=== PATIENT | female | born 1970 | race Caucasian/White ===

== ENCOUNTER 2019-05-11 16:02 | Emergency (ER) | payer OTHER ==
[2019-05-11] MEDS ORDERED: HYDROmorphone 0.5 MG/0.5 ML SYRINGE IM STA (16:35)
--- NOTE | 2019-05-11 17:16 | XR ---
EXAMINATION TYPE: XR clavicle LT DATE OF EXAM: 05/11/2019 COMPARISON: None HISTORY: Pain fall TECHNIQUE: 2 view left clavicle FINDINGS: Sternal clavicular junction appears unremarkable. Acromioclavicular junction appears within normal limits. No acute fractures or dislocations are evident. IMPRESSION: 1. Normal left clavicle
--- NOTE | 2019-05-11 17:17 | XR ---
EXAMINATION TYPE: XR shoulder complete LT DATE OF EXAM: 05/11/2019 COMPARISON: NONE HISTORY: Pain TECHNIQUE: Left Shoulder examined in 3 views FINDINGS: The humeral head articulates with the glenoid. The acromio-clavicular junction is normal. No acute fractures or dislocations are evident. A follow up study can be performed 7-10 days from acute trauma for continued pain. IMPRESSION: 1. Normal left Shoulder
--- NOTE | 2019-05-11 17:17 | XR ---
EXAMINATION TYPE: XR chest 2V DATE OF EXAM: 05/11/2019 COMPARISON: 11/14/2015 INDICATION: Pain, fall TECHNIQUE: Frontal and lateral views of the chest are obtained. FINDINGS: The heart size is normal. The pulmonary vasculature is normal. The lungs are clear. IMPRESSION: 1. No acute pulmonary process.
[2019-05-11] MEDS ORDERED: ACET/COD 300 MG/30 MG STARTER PACK 6 TAB BTL PO STA (17:51)
--- NOTE | 2019-05-11 17:52 | ED ---
General Adult HPI - General Source: patient, RN notes reviewed Mode of arrival: ambulatory Limitations: no limitations <Gr[employer] Zelaya - Last Filed: 05/11/19 17:47> <Ira Flower - Last Filed: 05/13/19 00:47> - General Chief complaint: Extremity Injury, Upper Stated complaint: Fall,Shoulder Injury Time Seen by Provider: 05/11/19 16:25 - History of Present Illness Initial comments: 49-year-old female without any significant past medical history presents to the emergency department for left shoulder pain. Patient states that she was stepping on a 6 inch high break when she fell and hit her left shoulder. Denies any neck back pain. Denies hitting her head. States she is having pain in the left shoulder and has difficulty moving the left shoulder secondary to pain. No other injuries.Patient has no other complaints at this time including shortness of breath, chest pain, abdominal pain, nausea or vomiting, headache, or visual changes. ([employer] Zelaya) - Related Data Home Medications Medication Instructions Recorded Confirmed Meloxicam [Mobic] 7.5 mg PO BID 11/14/15 11/14/15 Allergies Allergy/AdvReac Type Severity Reaction Status Date / Time amoxicillin trihydrate Allergy Rash/Hives Verified 11/14/15 02:12 [From Augmentin] ketorolac [From Toradol] Allergy Unknown Verified 05/11/19 16:06 morphine Allergy Rash/Hives Verified 11/14/15 02:12 potassium clavulanate Allergy Rash/Hives Verified 11/14/15 02:12 [From Augmentin] Review of Systems ROS Other: All systems not noted in ROS Statement are negative. <Gr[employer] Zelaya - Last Filed: 05/11/19 17:47> ROS Other: All systems not noted in ROS Statement are negative. <Ira Flower - Last Filed: 05/13/19 00:47> ROS Statement: Those systems with pertinent positive or pertinent negative responses have been documented in the HPI. Past Medical History Additional Past Medical History / Comment(s): sciatica, bladder, abdominal pain from bladder issues, always blood in urine History of Any Multi-Drug Resistant Organisms: None Reported Past Surgical History: Bladder Surgery, Hysterectomy, Tonsillectomy, Tubal Ligation Additional Past Surgical History / Comment(s): bladder metronic inner stem stimulator. revisions for bladder mesh Past Psychological History: Anxiety, Depression Smoking Status: Current every day smoker Past Alcohol Use History: Occasional Past Drug Use History: Marijuana <Gr[employer] Zelaya - Last Filed: 05/11/19 17:47> General Exam Limitations: no limitations General appearance: alert, in no apparent distress Head exam: Present: atraumatic, normocephalic, normal inspection Eye exam: Present: normal appearance, PERRL, EOMI. Absent: scleral icterus, conjunctival injection, periorbital swelling ENT exam: Present: normal exam, mucous membranes moist Neck exam: Present: normal inspection, full ROM. Absent: tenderness, meningismus, lymphadenopathy Respiratory exam: Present: normal lung sounds bilaterally. Absent: respiratory distress, wheezes, rales, rhonchi, stridor Cardiovascular Exam: Present: regular rate, normal rhythm, normal heart sounds. Absent: systolic murmur, diastolic murmur, rubs, gallop, clicks Extremities exam: Present: tenderness (Minimal tenderness of the generalized left shoulder. No clavicular or chest tenderness. No back tenderness. No distal humerus tenderness or any pain in the hand or forearm.), normal capillary refill (Capillary refill less than 2 seconds, radial pulse 2+ in the left upper extremity.), other (Sensation intact in the left upper extremity. Patient able to make okay sign, spread all fingers, and legs and extend left wrist.). Absent: full ROM (Patient has about 60 flexion and abduction of the left shoulder.), pedal edema, joint swelling, calf tenderness Back exam: Absent: vertebral tenderness (No cervical or thoracic spine tenderness.) Neurological exam: Present: alert, oriented X3 Psychiatric exam: Present: normal affect, normal mood <Grupo Zelaya P - Last Filed: 05/11/19 17:47> Course Vital Signs 05/11/19 05/11/19 16:03 18:07 Temperature 98.4 F 97.7 F Pulse Rate 61 78 Respiratory 16 18 Rate Blood Pressure 142/74 138/74 O2 Sat by Pulse 99 99 Oximetry Medical Decision Making <Grupo Zelaya P - Last Filed: 05/11/19 17:47> <Ira Flower A - Last Filed: 05/13/19 00:47> - Medical Decision Making Neurovascular status intact in the left upper extremity. No contusion of the back chest or arm. No spinal tenderness. She does have limited range of motion secondary to pain. X-ray of the left shoulder is normal. Chest x-ray negative for acute pulmonary process. X-ray of the clavicle is normal as well. Patient was given a sling, did discuss frozen shoulder so to do range of motion exercises and only use it for comfort. Discussed following up with orthopedics tomorrow. Patient will return here she has any worsening symptoms. ([employer] Zelaya) I was available for consultation in the emergency department. The history and physical exam were done by the midlevel provider. I was consulted for this patients care. I reviewed the case with the midlevel provider and based on their presentation of the patient, I agree with the assessment, medical decision making and plan of care as documented. Chart was dictated using [employer] dictation software. Attempts were made to correct any dictation errors however some typographical errors may persist. (Ira Flower) Disposition Is patient prescribed a controlled substance at d/c from ED?: No Time of Disposition: 17:50 <Grupo Zelaya - Last Filed: 05/11/19 17:47> <Ira Flower - Last Filed: 05/13/19 00:47> Clinical Impression: Shoulder pain, left Disposition: HOME SELF-CARE Condition: Good Instructions (If sedation given, give patient instructions): Shoulder Pain (ED) Additional Instructions: Please take Motrin for pain. Take Tylenol 3 if pain is severe but do not drive or operate machinery while taking this. Follow-up with orthopedics tomorrow, Dr Thompson. You shoulder sling for comfort but be sure to do range of motion exercises to prevent frozen shoulder. Return to the emergency department if you have any worsening symptoms. Referrals: Alie Steward MD [REFERRING] - 1-2 days Mahad Rasmussen DO [Doctor of Osteopathic Medicine] - 1-2 days
[2019-05-11 18:08] VITALS: PULSE 78; RESP 18; TEMP 97.7
[2019-05-11 18:14] VITALS: BP 138/74
== END 2019-05-11 18:13 | disposition home or self-care (01) ==
LOC: EC 16:02
DX: M75.02 Adhesive capsulitis of left shoulder (principal); S49.82XA Other specified injuries of left shoulder and upper arm, initial encounter; F17.200 Nicotine dependence, unspecified, uncomplicated; M54.30 Sciatica, unspecified side; Z79.1 Long term (current) use of non-steroidal anti-inflammatories (NSAID); Z88.0 Allergy status to penicillin; Z88.5 Allergy status to narcotic agent; Z88.6 Allergy status to analgesic agent; Z88.8 Allergy status to other drugs, medicaments and biological substances; W18.31XA Fall on same level due to stepping on an object, initial encounter; Y93.A3 Activity, aerobic and step exercise; Y92.009 Unspecified place in unspecified non-institutional (private) residence as the place of occurrence of the external cause
CPT/HCPCS: 73030; 73000; 71046; 99283; 96372; J1170